=== PATIENT | male | born 1995 | race Hispanic/Latino ===

== ENCOUNTER 2021-12-05 10:50 | Emergency (ER) | payer SELFPAY | END 2021-12-05 12:25 | disposition left against medical advice (07) | LOC: CSHERS 10:50 | DX: Z53.21 Procedure and treatment not carried out due to patient leaving prior to being seen by health care provider (principal) ==

== ENCOUNTER 2022-05-25 18:06 | Emergency (ER) | payer SELFPAY ==
[~2022-05-25 18:06] MED LIST: Iopamidol 370 76% 100 ML VIAL ONE
[2022-05-25] MEDS ORDERED: Ketorolac Tromethamine 30 MG/ML VIAL ONE (18:46)
[2022-05-25] MEDS ORDERED: Famotidine/PF 20 mg/2ml Vial ONE (18:46)
[2022-05-25] MEDS ORDERED: Ondansetron PF 4 MG/2 ML Vial ONE ×2 (18:46→20:00)
[2022-05-25] MEDS ORDERED: Dexamethasone 10 MG/ML VIAL ONE (18:46)
[2022-05-25 19:21] LABS: #Eosinphils 0.1 10x3/uL (0.0-0.5); #Monocytes 0.3 10x3/uL (0.0-1.1); #Neutrophils 7.2 10x3/uL (1.5-8.4); %Basophils 0.1 % (0.0-2.0); %Eosinophils 0.6 % (0.0-6.0); %Lymphocytes 18.7 % (18.0-47.0); %Monocytes 3.4 % (0.0-10.0); %Neutrophils 76.9 % (40.0-75.0); Hemoglobin 16.4 g/dL (13.5-17.5); Mean Corpuscular HGB CONC 34.1 g/dL (32.0-36.0); Mean Corpuscular Hemoglobin 31.8 pg (27.0-33.0); Mean Corpuscular Volume 93.2 fl (81.2-95.1); Mean Platelet Volume 9.5 fl (7.4-10.4); Platelet Count 263 10x3/uL (150-450); RBC Distribution Width 13.5 % (11.5-14.5); Red Blood Cell (RBC) Count 5.16 10x6/uL (4.32-5.72); White Blood Cell (WBC) Count 9.4 10x3/uL (3.5-10.5)
[2022-05-25 19:31] LABS: ALT (SGPT) 21 U/L (8-55); AST (SGOT) 20 U/L (5-34); Alkaline Phosphatase 54 U/L (40-110); Anion Gap 15 mmol/L (10-20); BUN (Urea Nitrogen) 10 mg/dL (8.9-20.6); Bilirubin, Total 0.7 mg/dL (0.2-1.2); Calc. Creatinine Clearance 0 mL/min (70-130); Calcium 8.9 mg/dL (7.8-10.44); Carbon Dioxide 24 mmol/L (22-29); Chloride 104 mmol/L (98-107); Estimated GFR 89; Globulin 2.9 g/dL (2.4-3.5); Glucose 105 mg/dL (70-105); Lipase 12 U/L (8-78); Potassium 4.1 mmol/L (3.5-5.1); Protein, Total 6.9 g/dL (6.0-8.3); Sodium 139 mmol/L (136-145)
[2022-05-25 19:37] LABS: Troponin I Less than 0.010 ng/mL (< 0.028)
[2022-05-25] MEDS ORDERED: diphenhydrAMINE 50 MG/ML VIAL ONE (19:59)
[2022-05-25] MEDS ORDERED: EPINEPHrine 1 MG/ML AMP ONE (20:00)
[2022-05-25] MEDS ORDERED: Promethazine HCl 12.5 MG in Sodium Chloride 0.9% 50 ML IVPB SCH (20:30)
== END 2022-05-25 21:48 | disposition home or self-care (01) ==
LOC: CSHERS 18:06
DX: L50.9 Urticaria, unspecified (principal); R11.2 Nausea with vomiting, unspecified; F17.210 Nicotine dependence, cigarettes, uncomplicated
CPT/HCPCS: 71045; 74177; 80053; 83690; 84484; 85025; 93005; 96361; 96372; 96374; 96375; 96376; J0171; J1100; J1200; J1885; J2405; Q9967; S0028